=== PATIENT | female | born 1950 | race Caucasian/White ===

== ENCOUNTER 2019-09-01 07:55 | Day surgery (SDC) | payer OTHER ==
[~2019-09-01 07:55] MED LIST: COZAAR50 MG PO; METFORMIN HCL500 M3 PO; OTEZLA30 MG PO; TRICOR145 MG PO
[2019-09-01] MEDS ORDERED: PERCOCET 5-3251 EACH PO (14:40)
[2019-09-01] MEDS ORDERED: RECTICARE30 GM TOP (14:41)
[2019-09-01] MEDS ORDERED: KETO10TA2 PO (14:41)
[2019-09-01] MEDS ORDERED: NEURONTIN300 MG PO (14:42)
== END 2019-09-01 18:35 | disposition home or self-care (01) ==
LOC: CIR.AMB 07:55 → EDBD 11:30 → CIR.AMB 11:30
DX: K64.5 Perianal venous thrombosis (principal)